=== PATIENT | female | born 1990 | race Hispanic/Latino ===

== ENCOUNTER 2016-11-17 19:04 | Emergency (ER) | payer OTHER ==
[~2016-11-17] VITALS: Ht 149.9 cm; Wt 74.5 kg
[~2016-11-17 19:04] MED LIST: HYDR-3702 PO; IBP200T PO; OXYC1TAB87 PO; PENI250T2 PO; PREN1TAB39 PO
[2016-11-17] MEDS ORDERED: ACETAMINOPHEN 500 MG TAB (TYLENOL) PO ONE (19:35)
[2016-11-17] MEDS ORDERED: ONDANSETRON 2 MG/ML (Z0FRAN) 2 ML VIAL IV ONE (19:35)
[2016-11-17] MEDS ORDERED: PANTOPRAZOLE IV 40 MG in SODIUM CHLORIDE FLUSH 10 ML IV ONE (19:35)
[2016-11-17 19:47] LABS: BASOPHILS % (AUTO) 0 % (0-2); EOSINOPHILS # (AUTO) 0.1 10^3uL; EOSINOPHILS % (AUTO) 1 % (0-4); LYMPHOCYTES # (AUTO) 2.7 X10^3; MEAN CORPUSCULAR HEMOGLOBIN 28.2 PG (26.0-34.0); MEAN CORPUSCULAR HGB CONC 34.3 g/dL (31.0-37.0); MEAN CORPUSCULAR VOLUME 82 FL (80-100); MEAN PLATELET VOLUME 10.6 FL (6.0-9.5); MONOCYTES # (AUTO) 0.7 X10^3; MONOCYTES % (AUTO) 9 % (3-11); NEUTROPHILS # (AUTO) 4.7 X10^3; NEUTROPHILS % (AUTO) 57 % (51-67); PLATELET COUNT 270 10^3uL (150-450); WHITE BLOOD COUNT 8.13 10^3uL (4.0-11.0)
[2016-11-17] MEDS ORDERED: SODIUM CHLORIDE FLUSH 10 ML SYR IV PRN (19:55)
[2016-11-17] MEDS ORDERED: SODIUM CHLORIDE FLUSH 3 ML SYR IV ONE (19:55)
[2016-11-17 19:57] LABS: ALBUMIN 4.5 g/dL (3.4-5.0); ANION GAP 16.5 MEQ/L (3-15); CALCULATED IONIZED CALCIUM 3.8 mg/dL (3.8-4.6); TOTAL PROTEIN 7.8 g/dL (6.4-8.5)
[2016-11-17] MEDS ORDERED: ONDAN4ODT PO (20:53)
[2016-11-17] MEDS ORDERED: OMEP20TA33 PO (20:53)
[2016-11-17 21:08] VITALS: BP 108/72
== END 2016-11-17 21:06 | disposition home or self-care (01) ==
LOC: ED 19:06
DX: O26.91 Pregnancy related conditions, unspecified, first trimester (principal); R51 Headache; R11.2 Nausea with vomiting, unspecified
CPT/HCPCS: 36415; 80053; 83690; 85025; 96361; 96365; 96375; 99283; C9113; J2405; J7030

== ENCOUNTER 2016-11-27 07:50 | Emergency (ER) | payer OTHER ==
[~2016-11-27] VITALS: Ht 149.9 cm; Wt 76.0 kg
--- NOTE | 2016-11-27 09:28 | NUR ---
STRAIGHT CATH TO DRAIN BLADDER PER DR SLADE.
--- NOTE | 2016-11-27 09:40 | NUR ---
CARISSA PHAN RN ATTEMPTS HEART TONES
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
[2016-11-27 10:38] LABS: CLARITY,URINE Clear; COLOR,URINE Yellow; GLUCOSE, URINE (UA) Negative (Negative)
[2016-11-27 10:39] LABS: BILIRUBIN,URINE Negative (Negative); LEUKOCYTE ESTERASE ,URINE Negative (Negative); RBC,URINE 20-50 /HPF
--- NOTE | 2016-11-27 11:38 | NUR ---
Awaiting lab retest of UA cath specimen.
[2016-11-27 12:16] LABS: BILIRUBIN,URINE Negative (Negative); CLARITY,URINE Slightly Cloudy; COLOR,URINE Yellow; GLUCOSE, URINE (UA) Negative (Negative)
[2016-11-27 12:17] LABS: URINE CENTRIFUGED VOLUME 10 mL
[2016-11-27 12:17] LABS: LEUKOCYTE ESTERASE, URINE Negative (Negative); URINE CENTRIFUGED VOLUME 12 mL
--- NOTE | 2016-11-27 12:58 | NUR ---
with cuff folder
[2016-11-27 13:15] VITALS: BP 116/75
== END 2016-11-27 13:15 | disposition home or self-care (01) ==
LOC: ED 07:51
DX: O26.891 Other specified pregnancy related conditions, first trimester (principal); K59.00 Constipation, unspecified; Z3A.10 10 weeks gestation of pregnancy
CPT/HCPCS: 51701; 81003; 81015; 87088; 99282; 99283

== ENCOUNTER 2017-01-15 19:52 | Emergency (ER) | payer OTHER ==
[~2017-01-15] VITALS: Ht 149.9 cm; Wt 67.7 kg
[2017-01-15 20:00] VITALS: RESP 16
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
[2017-01-15] MEDS ORDERED: TETANUS, DIPTHERIA, PERTUSSIS (ADACELL) VACCINE 0.5 ML VIAL IM ONE (20:25)
[2017-01-15] MEDS ORDERED: ACETAMINOPHEN 500 MG TAB (TYLENOL) ONE (20:30)
[2017-01-15] MEDS ORDERED: ACETAMINOPHEN 500 MG TAB (TYLENOL) PO ONE (20:40)
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
--- NOTE | 2017-01-15 21:15 | NUR ---
SHOULDER IMOBILIZER APPLIED
--- NOTE | 2017-01-15 21:20 | NUR ---
PT ALERT ORIENTED NO VAGINAL DISCHARGE OR PAIN IN ABD. IS 4 MO PREG.
[2017-01-15 21:25] VITALS: BP 117/70
== END 2017-01-15 21:28 | disposition home or self-care (01) ==
LOC: ED 20:03
DX: O26.892 Other specified pregnancy related conditions, second trimester (principal); S43.401A Unspecified sprain of right shoulder joint, initial encounter; S80.211A Abrasion, right knee, initial encounter; V48.5XXA Car driver injured in noncollision transport accident in traffic accident, initial encounter; Y93.89 Activity, other specified; Y92.410 Unspecified street and highway as the place of occurrence of the external cause; Z3A.16 16 weeks gestation of pregnancy
CPT/HCPCS: 73030; 90471; 90715; 99283; L3650

== ENCOUNTER → 2017-01-15 | Outpatient (CLI) | payer OTHER | LOC: EMS 19:55 | PROVIDERS: ATTEND Family Medicine | DX: M25.511 Pain in right shoulder (principal); V48.5XXA Car driver injured in noncollision transport accident in traffic accident, initial encounter; Y92.488 Other paved roadways as the place of occurrence of the external cause ==